=== PATIENT | female | born 1990 | race African-American/Black ===

== ENCOUNTER → 2020-06-24 | Outpatient (REF) | payer OTHER ==
[2020-06-24 21:42] LABS: URINE PREG TEST NEGATIVE (NEGATIVE)
== END ==
LOC: M LAB 21:29
PROVIDERS: ATTEND Physician Assistant
DX: Z00.00 Encounter for general adult medical examination without abnormal findings (principal)

== ENCOUNTER → 2021-02-07 | Outpatient (CLI) | payer OTHER | LOC: M WUC 14:30 | PROVIDERS: ATTEND Nurse Practitioner Family | DX: K90.41 Non-celiac gluten sensitivity (principal) ==

== ENCOUNTER → 2021-10-31 | Outpatient (REF) | payer OTHER ==
[2021-11-01 13:02] LABS: GC DNA AMPLIFICATION NEGATIVE (NEGATIVE)
== END ==
LOC: M SFHCLERA 11:15
PROVIDERS: ATTEND Family Medicine
DX: N89.8 Other specified noninflammatory disorders of vagina (principal)
CPT/HCPCS: 87070; 87077; 87186; 87205; 87661; G0463

== ENCOUNTER → 2022-10-28 | Outpatient (REF) | payer OTHER | LOC: M SFHCWAGY 17:03 | PROVIDERS: ATTEND Nurse Practitioner Family | DX: Z12.4 Encounter for screening for malignant neoplasm of cervix (principal) | CPT/HCPCS: 87624; G0123 ==

== ENCOUNTER → 2023-01-28 | Outpatient (REF) | payer OTHER | LOC: M SFHCWAGY 13:00 | PROVIDERS: ATTEND Nurse Practitioner Family | DX: N73.9 Female pelvic inflammatory disease, unspecified (principal) | CPT/HCPCS: 87491; 87591; 87661; 87798; G0463 ==

== ENCOUNTER → 2023-03-30 | Outpatient (REF) | payer OTHER | LOC: M SFHCWAGY 16:59 | PROVIDERS: ATTEND Nurse Practitioner Family | DX: N73.9 Female pelvic inflammatory disease, unspecified (principal) ==

== ENCOUNTER → 2023-08-24 | Outpatient (REF) | payer OTHER | LOC: M SFHCWAGY 13:46 | PROVIDERS: ATTEND Nurse Practitioner Family | DX: N73.9 Female pelvic inflammatory disease, unspecified (principal) | CPT/HCPCS: 87070; 87077; 87186; G0463 ==

== ENCOUNTER → 2023-09-22 | Outpatient (CLI) | payer OTHER ==
[2023-09-22 13:59] LABS: FREE T4 0.98 NG/DL (0.89-1.76)
[2023-09-22 14:00] LABS: PROLACTIN 5.01 NG/ML; THYROID STIMULATING HORMONE 2.041 uIU/ML (0.55-4.78)
[2023-09-22 14:10] LABS: HCG, SERUM QUALITATIVE NEGATIVE (NEGATIVE)
[2023-09-22 14:11] LABS: HEMOGLOBIN A1c 5.5 % (4.0-6.0)
[2023-09-26 15:30] LABS: 17 HYDROXY PROGESTERONE 22 ng/dL (.)
== END ==
LOC: M PLALAB 11:07
PROVIDERS: ATTEND Nurse Practitioner Family
DX: N91.1 Secondary amenorrhea (principal)
CPT/HCPCS: 36415; 82627; 83036; 83498; 84146; 84402; 84403; 84439; 84443; 84703; G0463

== ENCOUNTER → 2024-06-21 | Outpatient (REF) | payer OTHER | LOC: M SFHCWAGY 12:44 | PROVIDERS: ATTEND Nurse Practitioner Family | DX: N73.9 Female pelvic inflammatory disease, unspecified (principal) ==